=== PATIENT | female | born 1985 | race Asian ===

== ENCOUNTER 2020-07-27 13:51 | Emergency (ER) | payer BC ==
--- NOTE | 2020-07-27 14:11 | ED Physician Documentation ---
History of Present Illness - Stated complaint Stated Complaint: CHEST PRESSURE - Chief complaint Chief Complaint: Cardiac - History obtained from History obtained from: Patient - History of Present Illness Timing: Today Pain level max: 0 Pain level now: 0 - Additonal information Additional information: 34-year-old female presents to the emergency department with chest pressure and palpitations that started today. She is visiting from [place]. She states that this happens intermittently every few months. Has never been evaluated for this. Started after drinking coffee this morning. Feels like her heart is racing. Nothing makes it better or worse. She states that normally when it occurs it lasts all day. She is not on any medications. Does not smoke or use any drugs. No fever. No cough. No calf swelling. No pleuritic chest pain. Review of Systems Ten Systems: 10 systems reviewed and negative Constitutional: denies: Fever, Chills Throat: denies: Sore throat Cardiac: reports: Chest pain / pressure (Pressure, nonradiating), Palpitations. denies: Pedal edema, Calf pain Respiratory: denies: Cough, Wheezing GI: denies: Abdominal Pain, Nausea, Vomiting, Diarrhea : denies: Dysuria, Frequency, Hesitancy Skin: denies: Rash Musculoskeletal: denies: Neck pain, Back pain Neurologic: denies: Headache PD PAST MEDICAL HISTORY - Past Medical History Past Medical History: No - Past Surgical History Past Surgical History: No - Present Medications Home Medications: Ambulatory Orders Medication Instructions Recorded Confirmed No Known Home Medications 07/27/20 07/27/20 - Allergies Allergies/Adverse Reactions: Allergies Allergy/AdvReac Type Severity Reaction Status Date / Time No Known Drug Allergies Allergy Verified 07/27/20 13:55 - Living Situation Living Situation: reports: With family Living Arrangement: reports: At home - Social History Does the pt smoke?: No Does the pt drink ETOH?: No Does the pt have substance abuse?: No - Family History Family history: reports: Non contributory PD ED PE NORMAL - Vitals Vital signs reviewed: Yes - General General: Alert and oriented X 3, No acute distress - HEENT HEENT: Moist mucous membranes - Neck Neck: Supple, no meningeal sign - Cardiac Cardiac: RRR, Strong equal pulses - Respiratory Respiratory: No respiratory distress, Clear bilaterally - Abdomen Abdomen: Soft, Non tender, Non distended - Derm Derm: Warm and dry - Extremities Extremities: No edema, No calf tenderness / cord - Neuro Neuro: Alert and oriented X 3 - Psych Psych: Normal mood, Normal affect Results - Vitals Vitals: Vital Signs - 24 hr 07/27/20 07/27/20 07/27/20 13:56 14:15 15:09 Temperature 36.4 C L Heart Rate 117 H 113 H 96 Respiratory 18 14 17 Rate Blood Pressure 153/70 H 140/89 H 130/89 H O2 Saturation 100 100 100 Oxygen O2 Source Room air - EKG (time done) 1356 Rate: Rate (enter#) (116) Rhythm: Sinus tachycardia [place]: Normal Intervals: Normal [place] QRS: Normal Ischemia: Normal ST segments - Labs Labs: Laboratory Tests 07/27/20 07/27/20 07/27/20 14:07 14:07 14:07 WBC 6.1 RBC 5.06 Hgb 13.7 Hct 43.2 MCV 85.4 MCH 27.1 MCHC 31.7 L RDW 13.5 Plt Count 291 MPV 8.8 Neut # (Auto) 3.0 Lymph # (Auto) 2.3 [place] # (Auto) 0.6 Eos # (Auto) 0.1 Baso # (Auto) 0.0 Absolute Nucleated RBC 0.00 Nucleated RBC % 0.0 D-Dimer Sodium 138 Potassium 3.3 L Chloride 104 Carbon Dioxide 23 Anion Gap 11.0 BUN 15 Creatinine 0.6 Estimated GFR (MDRD) 113 Glucose 110 H Calcium 9.7 Total Bilirubin 0.8 AST 18 ALT 28 Alkaline Phosphatase 39 L Troponin I High Sens < 2.3 L Total Protein 8.6 H Albumin 4.8 Globulin 3.8 Albumin/Globulin Ratio 1.3 Lipase 43 TSH Free T4 07/27/20 07/27/20 14:07 14:07 WBC RBC Hgb Hct MCV MCH MCHC RDW Plt Count MPV Neut # (Auto) Lymph # (Auto) [place] # (Auto) Eos # (Auto) Baso # (Auto) Absolute Nucleated RBC Nucleated RBC % D-Dimer < 200.0 L Sodium Potassium Chloride Carbon Dioxide Anion Gap BUN Creatinine Estimated GFR (MDRD) Glucose Calcium Total Bilirubin AST ALT Alkaline Phosphatase Troponin I High Sens Total Protein Albumin Globulin Albumin/Globulin Ratio Lipase TSH 0.57 Free T4 1.11 - Rads (name of study) cxr Radiology: Prelim report reviewed, EMP read contemporaneously, See rad report (normal) PD MEDICAL DECISION MAKING - ED course Complexity details: reviewed results, re-evaluated patient, considered differential (No ST elevation ID, no aortic dissection, no PE, no tension pneumothorax, no aortic aneurysm), d/w patient ED course: No acute findings on x-ray, EKG, laboratory testing. Her heart rate did decrease on its own to the mid 90s. Unknown what her normal heart rate is. No evidence of DVT, PE, ACS, pneumothorax, aortic dissection. Patient is well- appearing, nontoxic. No hypoxia. No pleuritic chest pain. Patient counseled regarding signs and symptoms for which I believe and urgent re-evaluation would be necessary. Patient with good understanding of and agreement to plan and is comfortable going home at this time This document was made in part using voice recognition software. While efforts are made to proofread this document, sound alike and grammatical errors may occur. Departure - Departure Disposition: 01 Home, Self Care Clinical Impression: Sinus tachycardia, Palpitations Condition: Good Instructions: ED Palpitations Follow-Up: your,doctor in 1 week [Other] Comments: Follow-up with your doctor when you return back to [place]. Your testing is normal today including your cardiac testing, your thyroid and electrolytes. You do have an elevated heart rate, but it is in a normal rhythm. Return if you worsen. Avoid stimulants
--- NOTE | 2020-07-27 14:21 | XRAY Report ---
PROCEDURE: Chest 1 View X-Ray INDICATIONS: Chest Pain TECHNIQUE: One view of the chest was acquired. COMPARISON: FINDINGS: Surgical changes and devices: None. Lungs and pleura: No pleural effusions or pneumothorax. Lungs are clear. Mediastinum: Mediastinal contours appear normal. Heart size is normal. Bones and chest wall: No suspicious bony lesions. Overlying soft tissues appear unremarkable. IMPRESSION: Normal for age, source of current symptoms is not seen. Reviewed by: Dorian Cannon MD on 07/27/2020 2:19 PM PST Approved by: Dorian Cannon MD on 07/27/2020 2:19 PM PST Station ID: [id number]
[2020-07-27 14:22] LABS: BASOPHILS % (AUTO) 0.7 %; EOSINOPHILS # (AUTO) 0.1 10^3/uL (0.0-0.7); EOSINOPHILS % (AUTO) 1.5 %; HCT - HEMATOCRIT 43.2 % (37.0-47.0); HGB - HEMOGLOBIN 13.7 g/dL (12.0-16.0); LYMPHOCYTES # (AUTO) 2.3 10^3/uL (1.5-3.5); LYMPHOCYTES % (AUTO) 38.3 %; MEAN CORPUSCULAR HEMOGLOBIN 27.1 pg (27.0-31.0); MEAN CORPUSCULAR HGB CONC 31.7 g/dL (32.0-36.0); MEAN CORPUSCULAR VOLUME 85.4 fL (81.0-99.0); MEAN PLATELET VOLUME 8.8 fL (7.9-10.8); MONOCYTES # (AUTO) 0.6 10^3/uL (0.0-1.0); MONOCYTES % (AUTO) 9.9 %; NEUTROPHILS % (AUTO) 49.3 %; PLT - PLATELET COUNT 291 10^3/uL (130-450); RED BLOOD COUNT 5.06 10^6/uL (4.20-5.40); RED CELL DISTRIBUTION WIDTH 13.5 % (12.0-15.0); WHITE BLOOD COUNT 6.1 x10^3/uL (4.8-10.8)
[2020-07-27 14:37] LABS: ALBUMIN 4.8 g/dL (3.2-5.5); ALBUMIN/GLOBULIN RATIO 1.3 (1.0-2.2); BILIRUBIN,TOTAL 0.8 mg/dL (0.2-1.0); CALCIUM 9.7 mg/dL (8.5-10.3); CREATININE 0.6 mg/dL (0.4-1.0); POTASSIUM 3.3 mmol/L (3.5-5.0); TOTAL PROTEIN 8.6 g/dL (6.7-8.2)
[2020-07-27 15:05] LABS: THYROID STIMULATING HORMONE 0.57 uIU/mL (0.34-5.60)
[2020-07-27 15:07] LABS: FREE T4 (FREE THYROXINE) 1.11 ng/dL (0.58-1.64)
[2020-07-27 15:10] VITALS: BP 130/89
== END 2020-07-27 15:22 | disposition home or self-care (01) ==
LOC: ED 13:51
DX: R00.0 Tachycardia, unspecified (principal); R00.2 Palpitations
CPT/HCPCS: 36415; 80053; 83690; 84439; 84443; 84484; 85025; 85379; 93005; 99284